=== PATIENT | female | born 1995 | race Two or more races ===

== ENCOUNTER 2018-11-22 15:07 | Emergency (ER) | payer MEDICAID ==
[~2018-11-22] VITALS: Ht 162.6 cm; Wt 78.0 kg
[2018-11-22] MEDS ORDERED: PANTOPRAZOLE SODIUM 40 MG VIAL ONE (15:45)
[2018-11-22] MEDS ORDERED: IV NORMAL SALINE 1000 ML BAG IV ONE ×2 (15:45→16:30)
[2018-11-22] MEDS ORDERED: PANTOPRAZOLE SODIUM 40 MG VIAL IV ONE (15:45)
[2018-11-22] MEDS ORDERED: ONDANSETRON 4 MG/2 ML VIAL ONE (15:45)
[2018-11-22] MEDS ORDERED: ONDANSETRON 4 MG/2 ML VIAL IV ONE (15:45)
[2018-11-22 15:54] LABS: BASOPHILS % (AUTO) 0.5 % (0.0-2.0); EOSINOPHILS % (AUTO) 0.3 % (0.0-7.0); HEMATOCRIT 44.8 % (31.2-41.9); HEMOGLOBIN 15.3 g/dL (10.9-14.3); MEAN CORPUSCULAR HEMOGLOBIN 31.1 uug (24.7-32.8); MEAN CORPUSCULAR HGB CONC 34 g/dL (32.3-35.6); MEAN CORPUSCULAR VOLUME 91.2 fL (75.5-95.3); MONOCYTES # (AUTO) 0.4 K/uL (2.0-10.0); MONOCYTES % (AUTO) 3.7 % (0.0-11.0); NEUTROPHILS % (AUTO) 85.5 % (38.5-71.5); PLATELET COUNT (AUTO) 326 K/uL (179-408); RED BLOOD CELL COUNT(AUTO) 4.91 MIL/uL (3.63-4.92); WHITE BLOOD COUNT (AUTO) 10.5 K/uL (3.8-11.8)
[2018-11-22 16:02] LABS: CARBON DIOXIDE 25 mmol/L (21-32); CHLORIDE 103 mmol/L (98-107); CREATININE 0.6 mg/dL (0.6-1.3); GLUCOSE 96 mg/dL (74-106); POTASSIUM 3.9 mmol/L (3.5-5.1); UREA NITROGEN, BLOOD 8 mg/dL (7-18)
[2018-11-22 16:08] LABS: ALANINE AMINOTRANSFERASE 20 U/L (14-59); ALKALINE PHOSPHATASE 95 U/L (50-136); ASPARTATE AMINOTRANSFERASE 17 U/L (15-37); BILIRUBIN,DIRECT 0.1 mg/dL (0.0-0.2); BILIRUBIN,TOTAL 0.7 mg/dL (0.2-1.0); LIPASE 74 U/L (73-393); TOTAL PROTEIN, SERUM 8.4 g/dL (6.4-8.2)
[2018-11-22] MEDS ORDERED: ACETAMINOPHEN ES 500 MG TABLET PO ONE (17:00)
[2018-11-22] MEDS ORDERED: ACETAMINOPHEN ES 500 MG TABLET ONE (17:03)
--- NOTE | 2018-11-22 17:05 | NUR ---
Patient discharged to home in stable conditon. Written and verbal after care instructions given. Patient verbalizes understanding of instructions.PT WALKS IN STEADY GAIT. PT DENEIS ANY N/V, PT SAYS FEELS BETTER, PT ONLY COMPLAIN OF MIGRAINE HEADACHE.PT MEDICATED. PT WANTS TO GO HOME NOW.
[2018-11-22 17:07] VITALS: BP 113/78
--- NOTE | 2018-11-26 09:00 | NUR ---
LATE ENTRY: 11/22/18 NS 1000ML BOLUS VIA SALINE LOCK TO LAC START TIME: 1628 END TIME: 1700
== END 2018-11-22 17:08 | disposition home or self-care (01) ==
LOC: ER 15:07
DX: R10.10 Upper abdominal pain, unspecified (principal); E86.0 Dehydration
CPT/HCPCS: 36415; 80048; 80076; 83690; 84702; 85025; 96361; 96374; 96375; 99283; C9113; J2405; A4663; A9150; J7030

== ENCOUNTER 2021-03-14 20:03 | Emergency (ER) | payer MEDICAID ==
[~2021-03-14] VITALS: Ht 162.6 cm; Wt 79.8 kg
--- NOTE | 2021-03-14 20:28 | NUR ---
Patient coming from home with c/o left lower abdomin radiating to left flank pain x 3 days, PL 9/10, gradual onset, hurts more upon ambulation, comes and goes, described as sharp and shooting. A/O x4, no SOB or labored breathing. No c/o CP/pressure. Partner at bedside
[2021-03-14] MEDS ORDERED: HYDROMORPHONE 1 MG/1 ML DISP.SYRIN IV ONE (20:30)
[2021-03-14] MEDS ORDERED: ACETAMINOPHEN ES 500 MG TABLET PO ONE (20:30)
[2021-03-14] MEDS ORDERED: KETOROLAC TROMETHAMINE 15 MG INJ IVP ONE (20:30)
[2021-03-14] MEDS ORDERED: ONDANSETRON 4 MG/2 ML VIAL IV ONE (20:30)
--- NOTE | 2021-03-14 20:30 | NUR ---
Dr. Magallanes at bedside, MSE in progress in room 5A.
[2021-03-14 21:01] LABS: BASOPHILS # (AUTO) 0.1 K/uL (0.0-8.0); BASOPHILS % (AUTO) 0.5 % (0.0-2.0); EOSINOPHILS % (AUTO) 0.1 % (0.0-7.0); HEMATOCRIT 44.6 % (31.2-41.9); HEMOGLOBIN 15.4 g/dL (10.9-14.3); LYMPHOCYTES # (AUTO) 1.7 K/uL (20.0-40.0); LYMPHOCYTES % (AUTO) 9.1 % (20.5-51.5); MEAN CORPUSCULAR HEMOGLOBIN 31.9 uug (24.7-32.8); MEAN CORPUSCULAR HGB CONC 34 g/dL (32.3-35.6); MEAN CORPUSCULAR VOLUME 92.7 fL (75.5-95.3); MONOCYTES # (AUTO) 1.5 K/uL (2.0-10.0); MONOCYTES % (AUTO) 8.1 % (0.0-11.0); NEUTROPHILS # (AUTO) 15.6 K/uL (1.8-8.9); NEUTROPHILS % (AUTO) 82.2 % (38.5-71.5); PLATELET COUNT (AUTO) 336 K/uL (179-408); RED BLOOD CELL COUNT(AUTO) 4.81 MIL/uL (3.63-4.92)
[2021-03-14 21:01] LABS: *BILIRUBIN,URIN NEGATIVE (NEGATIVE); *COLOR,URINE YELLOW (YELLOW); *KETONES,URINE 3+ (NEGATIVE); *UROBILINOGEN,URINE 0.2 E.U./dl (NORMAL); LEUKOCYTE ESTERASE ,URINE TRACE (NEGATIVE); NITRITE, URINE NEGATIVE (NEGATIVE); PH,URINE 6.5 (5.0-8.0); UGLUCOSE NEGATIVE (NEGATIVE)
[2021-03-14 21:04] LABS: *BLOOD, URINE TRACE INTACT (NEGATIVE)
[2021-03-14 21:06] LABS: CREATININE 0.7 mg/dL (0.6-1.3); POTASSIUM 3.6 mmol/L (3.5-5.1)
[2021-03-14 21:07] LABS: *CLARITY,URINE SLIGHTLY HAZY (CLEAR); *URINE HCG, QUAL NEGATIVE (NEGATIVE); BACTERIA,URINE FEW /HPF (NONE SEEN); SQUAMOUS EPITHELIAL CELL,UR MODERATE /HPF (NONE SEEN)
[2021-03-14 21:12] LABS: BILIRUBIN,DIRECT 0.2 mg/dL (0.0-0.2); BILIRUBIN,TOTAL 1.3 mg/dL (0.2-1.0)
[2021-03-14] MEDS ORDERED: ONDANSETRON 4 MG/2 ML VIAL ONE (21:13)
[2021-03-14] MEDS ORDERED: ACETAMINOPHEN ES 500 MG TABLET ONE (21:13)
[2021-03-14] MEDS ORDERED: HYDROMORPHONE 1 MG/1 ML DISP.SYRIN ONE (21:14)
[2021-03-14] MEDS ORDERED: IV NORMAL SALINE 250 ML IV ONE (21:20)
[2021-03-14] MEDS ORDERED: SWABABLE VALVE TRANSFER SET EA MC ONE (21:20)
[2021-03-14] MEDS ORDERED: IOHEXOL 300MG/ML 100 ML INFUS..BTL ONE (21:20)
--- NOTE | 2021-03-14 21:25 | NUR ---
Pt being taken for for CT.
[2021-03-14] MEDS ORDERED: IV D5/ 0.9% NACL 1,000 ML IV ONE (21:30)
--- NOTE | 2021-03-14 21:45 | NUR ---
Pt came back from CT, stable condition.
[2021-03-14] MEDS ORDERED: KETOROLAC TROMETHAMINE 30 MG INJ ONE (21:46)
[2021-03-14] MEDS ORDERED: AMOX-430 PO (23:57)
[2021-03-14] MEDS ORDERED: ONDA4TAB5 PO (23:57)
[2021-03-14] MEDS ORDERED: HYDR-3980 PO (23:57)
[2021-03-15] MEDS ORDERED: PIPERACILLIN SODIUM/TAZOBACTAM 3.375 G in IV DEXTROSE 5% 50 ML IV ONE
[2021-03-15] MEDS ORDERED: HYDR-4209 PO ×2 (00:02→16:16)
[2021-03-15] MEDS ORDERED: PIPERACILLIN/TAZOBACTAM/D5W 50 ML IV ONE (00:08)
[2021-03-15] MEDS ORDERED: HYDROMORPHONE 1 MG/1 ML DISP.SYRIN IV ONE (00:30)
[2021-03-15] MEDS ORDERED: HYDROMORPHONE 1 MG/1 ML DISP.SYRIN ONE (00:33)
--- NOTE | 2021-03-15 01:02 | NUR ---
Patient discharged to home in stable condition. A/O x4, no SOB or labored breathing, afebrile. No c/o pain/discomfort at this time. Accompanied by significant other. Written and verbal after care instructions given, instructed not to drive. Patient verbalizes understanding of instructions. Stressed follow up or return to ER for worsening s/s. Steady gait.
[2021-03-15 01:03] VITALS: BP 100/66
== END 2021-03-15 01:04 | disposition home or self-care (01) ==
LOC: ER 20:03
DX: K57.32 Diverticulitis of large intestine without perforation or abscess without bleeding (principal); R10.9 Unspecified abdominal pain; K80.20 Calculus of gallbladder without cholecystitis without obstruction
CPT/HCPCS: 36415; 74177; 76705; 80048; 80076; 81001; 83690; 84703; 85025; 85730; 87086; 96361; 96365; 96375; 96376; 99285; J1170 ×2; J1885; J2405; J2543; Q9967; A4663; A9150; J7050

== ENCOUNTER 2021-03-15 15:55 | Emergency (ER) | payer MEDICAID ==
[~2021-03-15 15:55] MED LIST: AMOX-430 PO; HYDR-3980 PO; HYDR-4209 PO; ONDA4TAB5 PO
--- NOTE | 2021-03-15 16:10 | NUR ---
Pt had to be registered in order for to print a new [facility] for her as the pharmacy would not accept her Rx she was given here last night.
[2021-03-15] MEDS ORDERED: HYDR-4209 PO (16:16)
== END 2021-03-15 16:20 | disposition left against medical advice (07) ==
LOC: ER 15:55
DX: Z53.21 Procedure and treatment not carried out due to patient leaving prior to being seen by health care provider (principal)

== ENCOUNTER 2021-09-23 20:50 | Emergency (ER) | payer MEDICAID ==
[~2021-09-23 20:50] MED LIST changes: -HYDR-3980 PO
--- NOTE | 2021-09-23 21:10 | NUR ---
PATIENT WAS CALLED TO BE TRIAGED BUT WAS NOT PRESENT IN THE [facility] ROOM OR OUTSIDE OF ER.
--- NOTE | 2021-09-23 21:20 | NUR ---
PATIENT WAS CALLED TO BE TRAIGED BUT WAS NOT PRESENT IN THE [facility] ROOM
--- NOTE | 2021-09-23 21:30 | NUR ---
PATIENT WAS NOT TRIAGED OR SEEN BY [facility].
== END 2021-09-23 21:30 | disposition left against medical advice (07) ==
LOC: ER 20:56
DX: Z53.21 Procedure and treatment not carried out due to patient leaving prior to being seen by health care provider (principal)